=== PATIENT | female | born 1995 | race American Indian/Alaskan Native ===

== ENCOUNTER 2017-10-07 12:03 | Emergency (ER) | payer MEDICAID ==
[2017-10-07] MEDS ORDERED: Sodium Chloride 0.9% 1,000 ML IV ONE (14:38)
[2017-10-07] MEDS ORDERED: Sodium Chloride 0.9% 10 ML Syringe FLUSH PRN (14:38)
[2017-10-07 14:43] LABS: CHLORIDE,CL 105 mmol/L (101-111); SODIUM,NA 137 mmol/L (135-145)
[2017-10-07] MEDS ORDERED: Iopamidol 612 MG/ML 75 ML Bottle IVPUSH ONE (15:39)
--- NOTE | 2017-10-07 15:43 | EDM.PDOC ---
ED HPI GENERAL MEDICAL PROBLEM - General Chief Complaint: Back Pain or Injury Stated Complaint: BACK/ABDOMINAL PAIN Time Seen by Provider: 10/07/17 13:45 Source of Information: Reports: Patient, RN, RN Notes Reviewed History Limitations: Reports: No Limitations - History of Present Illness INITIAL COMMENTS - FREE TEXT/NARRATIVE: Patient presents to ER with complaint of diffuse abdominal pain/bilateral flank pain. She has complaint of urgency, burning and frequency. Denies the chance of . States she went to [facility] 2 weeks ago. She was given antibiotics for a UTI, which she never took. She took one of those pills yesterday. She admits to fever, chills, nausea, vomiting and diarrhea. Duration: Constant Location: Reports: Abdomen, Other (flank) Quality: Reports: Ache Severity: Moderate Improves with: Reports: None Worsens with: Reports: None Associated Symptoms: Reports: No Other Symptoms Treatments NATURAL RESOURCES SPECIALIST: Reports: Other Medication(s) Other Treatments NATURAL RESOURCES SPECIALIST: Ibuprophen Lower Back Pain Score (Numeric/FACES): 7 - Related Data Allergies Allergy/AdvReac Type Severity Reaction Status Date / Time No Known Allergies Allergy Verified 10/07/17 13:31 Home Meds: Home Meds Amoxicillin 10/07/17 [History] Ibuprofen 10/07/17 [History] Past Medical History - Past Health History Medical/Surgical History: Denies Medical/Surgical History Respiratory History: Reports: Asthma Gastrointestinal History: Reports: None Genitourinary History: Reports: Pyelonephritis 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) Other OB/BYN History: Ovarian cyst - Infectious Disease History Infectious Disease History: Reports: None - Past Surgical History GI Surgical History: Reports: Cholecystectomy Social & Family History - Family History Family Medical History: Noncontributory Endocrine/Metabolic: Reports: Diabetes, type II - Tobacco Use Smoking Status *Q: Current Every Day Smoker Years of Tobacco use: 6 Packs/Tins Daily: 0.2 Second Hand Smoke Exposure: Yes - Caffeine Use Caffeine Use: Reports: None - Alcohol Use Days Per Week of Alcohol Use: 0 - Recreational Drug Use Recreational Drug Use: No - Sexual History Sexual History: Reports: Sexually Active - Living Situation & Occupation Living situation: Reports: Single, with Family Occupation: Student ED ROS GENERAL - Review of Systems Review Of Systems: ROS reveals no pertinent complaints other than HPI. ED EXAM, GI/ABD - Physical Exam Exam: See Below Exam Limited By: No Limitations General Appearance: Alert, WD/WN, No Apparent Distress Eyes: Bilateral: Normal Appearance Ears: Normal External Exam, Normal Canal, Hearing Grossly Normal, Normal TMs Nose: Normal Inspection, Normal Mucosa, No Blood Head: Atraumatic, Normocephalic Neck: Normal Inspection, Supple, Non-Tender, Full Range of Motion Respiratory/Chest: Wheezing (inspiratory wheeze on right.) Cardiovascular: Normal Peripheral Pulses, Regular Rate, Rhythm, No Edema, No Gallop, No JVD, No Murmur, No Rub GI/Abdominal Exam: Other (tender) (Female) Exam: Deferred Rectal (Female) Exam: Deferred Back Exam: Normal Inspection, Full Range of Motion, NT Extremities: Normal Inspection, Normal Range of Motion, Non-Tender, Normal Capillary Refill, No Pedal Edema Neurological: Alert, Oriented, CN II-XII Intact, Normal Cognition, Normal Gait, Normal Reflexes, No Motor/Sensory Deficits Psychiatric: Normal Affect, Normal Mood Skin Exam: Warm, Dry, Intact, Normal Color, No Rash Lymphatic: No Adenopathy Course - Vital Signs Last Recorded V/S: Last Vital Signs Temp 98.3 F 10/07/17 17:11 Pulse 71 10/07/17 17:11 Resp 16 10/07/17 17:11 BP 114/65 10/07/17 17:11 Pulse Ox 98 10/07/17 17:11 - Orders/Labs/Meds Orders: Active Orders 24 hr Category Date Time Status Peripheral IV Care [RC] . DIRECTED Care 10/07/17 14:38 Active CHLAMYDIA AND GONORRHEA BY [facility] 10/07/17 13:22 Received Sodium Chloride 0.9% [Saline Flush] Med 10/07/17 14:38 Active 10 ml FLUSH ASDIRECTED PRN Peripheral IV Insertion Adult [OM.PC] Stat Oth 10/07/17 14:38 Ordered Medication Orders Sodium Chloride (Saline Flush) 10 ml FLUSH ASDIRECTED PRN PRN Reason: Keep Vein Open Last Admin: 10/07/17 15:25 Dose: 10 ml Labs: Laboratory Tests 10/07/17 10/07/17 10/07/17 Range/Units 13:22 13:22 14:08 WBC 18.9 H (5.0-10.0) 10^3/uL RBC 4.82 (4.2-5.4) 10^6/uL Hgb 13.9 (12.0-16.0) g/dL Hct 41.7 (37.0-47.0) % MCV 86.5 D (80-100) fL MCH 28.8 (27.0-34.0) pg MCHC 33.3 (33.0-35.0) g/dL Plt Count 291 (150-450) 10^3/uL Neut % (Auto) 82.3 H (42.2-75.2) % Lymph % (Auto) 10.7 L (20.5-50.1) % [place] % (Auto) 5.9 (2-8) % Eos % (Auto) 0.8 L (1.0-3.0) % Baso % (Auto) 0.3 (0.0-1.0) % Sodium (135-145) mmol/L Potassium (3.6-5.0) mmol/L Chloride (101-111) mmol/L Carbon Dioxide (21.0-31.0) mmol/L Anion Gap BUN (7-18) mg/dL Creatinine (0.6-1.3) mg/dL Est Cr Clr Drug Dosing mL/min Estimated GFR (MDRD) BUN/Creatinine Ratio Glucose (74-105) mg/dL Calcium (8.4-10.2) mg/dl Total Bilirubin (0.2-1.0) mg/dL AST (10-42) IU/L ALT (10-60) IU/L Alkaline Phosphatase (42-121) IU/L Total Protein (6.7-8.2) g/dl Albumin (3.2-5.5) g/dl Globulin Albumin/Globulin Ratio Urine Color Yellow (YELLOW) Urine Appearance Clear (CLEAR) Urine pH 6.0 (5.0-9.0) Ur Specific [place] 1.010 (1.005-1.030) Urine Protein Negative (NEGATIVE) Urine Glucose (UA) Negative (NEGATIVE) Urine Ketones Negative (NEGATIVE) Urine Occult Blood Moderate H (NEGATIVE) Urine Nitrite Negative (NEGATIVE) Urine Bilirubin Negative (NEGATIVE) Urine Urobilinogen 0.2 (0.2-1.0) mg/dL Ur Leukocyte Esterase Trace H (NEGATIVE) Urine RBC 0-5 /HPF Urine WBC 0-5 (0-5/HPF) /HPF Ur Epithelial Cells Many H /HPF Urine Bacteria Few (0-FEW/HPF) /HPF Urine HCG, Qual Negative 10/07/17 Range/Units 14:08 WBC (5.0-10.0) 10^3/uL RBC (4.2-5.4) 10^6/uL Hgb (12.0-16.0) g/dL Hct (37.0-47.0) % MCV (80-100) fL MCH (27.0-34.0) pg MCHC (33.0-35.0) g/dL Plt Count (150-450) 10^3/uL Neut % (Auto) (42.2-75.2) % Lymph % (Auto) (20.5-50.1) % [place] % (Auto) (2-8) % Eos % (Auto) (1.0-3.0) % Baso % (Auto) (0.0-1.0) % Sodium 137 (135-145) mmol/L Potassium 3.2 L (3.6-5.0) mmol/L Chloride 105 (101-111) mmol/L Carbon Dioxide 22.0 (21.0-31.0) mmol/L Anion Gap 13.2 BUN 10 (7-18) mg/dL Creatinine 0.5 L (0.6-1.3) mg/dL Est Cr Clr Drug Dosing 154.98 mL/min Estimated GFR (MDRD) > 60 BUN/Creatinine Ratio 20.00 Glucose 90 (74-105) mg/dL Calcium 9.1 (8.4-10.2) mg/dl Total Bilirubin 1.5 H (0.2-1.0) mg/dL AST 32 (10-42) IU/L ALT 69 H (10-60) IU/L Alkaline Phosphatase 71 (42-121) IU/L Total Protein 7.9 (6.7-8.2) g/dl Albumin 4.5 (3.2-5.5) g/dl Globulin 3.4 Albumin/Globulin Ratio 1.32 Urine Color (YELLOW) Urine Appearance (CLEAR) Urine pH (5.0-9.0) Ur Specific [place] (1.005-1.030) Urine Protein (NEGATIVE) Urine Glucose (UA) (NEGATIVE) Urine Ketones (NEGATIVE) Urine Occult Blood (NEGATIVE) Urine Nitrite (NEGATIVE) Urine Bilirubin (NEGATIVE) Urine Urobilinogen (0.2-1.0) mg/dL Ur Leukocyte Esterase (NEGATIVE) Urine RBC /HPF Urine WBC (0-5/HPF) /HPF Ur Epithelial Cells /HPF Urine Bacteria (0-FEW/HPF) /HPF Urine HCG, Qual Meds: Medications Generic Name Dose Route Start Last Admin Trade Name Freq PRN Reason Stop Dose Admin Sodium Chloride 10 ml 10/07/17 14:38 10/07/17 15:25 Saline Flush FLUSH 10 ml ASDIRECTED PRN Administration Keep Vein Open Discontinued Medications Generic Name Dose Route Start Last Admin Trade Name Freq PRN Reason Stop Dose Admin Azithromycin 1,000 mg 10/07/17 17:30 Zithromax PO 10/07/17 17:31 ONETIME ONE Ceftriaxone Sodium 250 mg 10/07/17 17:27 Rocephin IM 10/07/17 17:28 ONETIME ONE Sodium Chloride 1,000 mls @ 999 mls/hr 10/07/17 14:38 10/07/17 15:24 Normal Saline IV 10/07/17 15:38 999 mls/hr .BOLUS ONE Administration Iopamidol 75 ml 10/07/17 15:39 10/07/17 15:30 Isovue-300 (61%) IVPUSH 10/07/17 15:40 75 ml ONETIME ONE Administration Ondansetron HCl 4 mg 10/07/17 16:21 10/07/17 16:38 Zofran IV 10/07/17 16:22 4 mg ONETIME ONE Administration - Radiology Interpretation Free Text/Narrative:: CT abdomen/pelvis: Cholecystectomy. Trace fluid in the pelvis. Otherwise negative emergency CT scan pelvis and abdomen. See Rad report. - Re-Assessments/Exams Free Text/Narrative Re-Assessment/Exam: 10/07/17 17:31 Pt was instructed to abstain from sexual intercourse until she has completed her antibiotics. Pt was advised of the antibiotics that she has received. Advised to follow up in 3 days if no improvement of symptoms. Departure - Departure Time of Disposition: 17:32 Disposition: Home, Self-Care 01 Condition: Fair Clinical Impression: PID (acute pelvic inflammatory disease) - Discharge Information Instructions: Pelvic Pain, Female, [id number], Chlamydia, Female, Easy-to- Read, Pelvic Inflammatory Disease, [id number], Gonorrhea Forms: ED Department Discharge Additional Instructions: RX: Doxycycline Follow up in 3 days if no improvement Follow up with your primary care facility as necessary No sexual intercourse until antibiotics are completed and symptoms are gone. - My Orders Last 24 Hours: My Active Orders 10/07/17 13:22 CHLAMYDIA AND GONORRHEA BY [facility] Urgent 10/07/17 14:38 Peripheral IV Care [RC] . DIRECTED Sodium Chloride 0.9% [Saline Flush] 10 ml FLUSH ASDIRECTED PRN Peripheral IV Insertion Adult [OM.PC] Stat - Assessment/Plan Last 24 Hours: My Active Orders 10/07/17 13:22 CHLAMYDIA AND GONORRHEA BY [facility] Urgent 10/07/17 14:38 Peripheral IV Care [RC] . DIRECTED Sodium Chloride 0.9% [Saline Flush] 10 ml FLUSH ASDIRECTED PRN Peripheral IV Insertion Adult [OM.PC] Stat
--- NOTE | 2017-10-07 16:17 | CT ---
Clinical history: 22-year-old female smoker with left lower quadrant pain and abnormally elevated i te blood cell count (19,900). TECHNIQUE: Volume acquisition of data from the abdomen and pelvis obtained without oral contrast but during intravenous ministration 75 cc nonionic Isovue contrast while patient was lying supine on the Siemens multi slice scanner [place], [place]. All data archived in the PACS system for storage, reformatting axial/sagittal/coronal planes and study. Interpretation: 1. Normal midline uterus and ovaries bilaterally (*trace of fluid in the cul-de-sac just possible rec ent cyst rupture). 2. No sign of diverticulosis. Normal appendix RLQ. No pelvic or abdominal mass lesion, mesenteric or retroperitoneal lymphadenopathy, inflammatory "dirty" peritoneal fat, signs of mechanical bowel obstr uction, ascites or free intraperitoneal air. 3. Surgical clips gallbladder fossa right upper quadrant. Large fatty liver. 4. Stomach, spleen, pancreas, adrenal glands unremarkable. No ventral wall hernias. 5. Normal caliber aortoiliac vessels. Lumbar spine unremarkable. Lung bases clear. 6. Exogenous obesity. CONCLUSION: Cholecystectomy. Trace fluid in the pelvis. Otherwise negative emergency CT scan pelvis a nd abdomen.
[2017-10-07] MEDS ORDERED: Ondansetron 4 MG/2 ML SDV IV ONE (16:21)
[2017-10-07 17:11] VITALS: BP 114/65
[2017-10-07] MEDS ORDERED: cefTRIAXone 250 MG Vial IM ONE (17:27)
[2017-10-07] MEDS ORDERED: Azithromycin 250 MG Tab PO ONE (17:30)
[2017-10-07] MEDS ORDERED: Lidocaine 1% 30 ML SDV ONE (17:42)
== END 2017-10-07 17:54 | disposition home or self-care (01) ==
LOC: DL.ED 12:03
DX: N73.0 Acute parametritis and pelvic cellulitis (principal); F17.210 Nicotine dependence, cigarettes, uncomplicated
CPT/HCPCS: 36415; 74177; 80053; 81001; 81025; 85025; 87210; 87491; 87591; 96361; 96372; 96374; 99284; A9270; J0696; J2405; J7030; J7050; Q9967

== ENCOUNTER 2017-10-15 21:48 | Emergency (ER) | payer MEDICAID ==
[2017-10-15 21:55] VITALS: BP 124/68
--- NOTE | 2017-10-15 22:11 | EDM.PDOC ---
ED HPI GENERAL MEDICAL PROBLEM - General Chief Complaint: Lower Extremity Injury/Pain Stated Complaint: BOTTOM OF FOOT HURTS, [id number] Time Seen by Provider: 10/15/17 22:00 Source of Information: Reports: Patient History Limitations: Reports: No Limitations - History of Present Illness INITIAL COMMENTS - FREE TEXT/NARRATIVE: c/o painful right foot bottom, has appt Wednesday but hurts to walk and work. 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) Other OB/BYN History: Ovarian cyst - Infectious Disease History Infectious Disease History: Reports: None - Past Surgical History GI Surgical History: Reports: Cholecystectomy Social & Family History - Family History Family Medical History: Noncontributory Endocrine/Metabolic: Reports: Diabetes, type II - Tobacco Use Smoking Status *Q: Current Every Day Smoker Years of Tobacco use: 6 Packs/Tins Daily: 0.2 Second Hand Smoke Exposure: Yes - Caffeine Use Caffeine Use: Reports: None - Alcohol Use Days Per Week of Alcohol Use: 0 - Recreational Drug Use Recreational Drug Use: No - Sexual History Sexual History: Reports: Sexually Active - Living Situation & Occupation Living situation: Reports: Single, with Family Occupation: Student Review of Systems - Review of Systems Review Of Systems: ROS reveals no pertinent complaints other than HPI. ED EXAM, GENERAL - Physical Exam Exam: See Below Exam Limited By: No Limitations General Appearance: Alert, WD/WN, Mild Distress, Other (upset) Ears: Hearing Grossly Normal Throat/Mouth: Normal Voice, No Airway Compromise Head: Atraumatic Neck: Non-Tender, Full Range of Motion Respiratory/Chest: No Respiratory Distress Cardiovascular: Regular Rate, Rhythm GI/Abdominal: Soft, Non-Tender Extremities: Other (right lateral plantar callus without s/s cellulitis, gait limited to pain) Neurological: Alert, Oriented, Normal Cognition, Normal Gait, No Motor/Sensory Deficits Psychiatric: Tearful Skin Exam: Warm, Dry, Normal Color Lymphatic: No Adenopathy Course - Vital Signs Last Recorded V/S: Last Vital Signs Temp 37.1 C 10/15/17 21:54 Pulse 83 10/15/17 21:54 Resp 16 10/15/17 21:54 BP 124/68 10/15/17 21:54 Pulse Ox 98 10/15/17 21:54 Departure - Departure Time of Disposition: 22:08 Disposition: Home, Self-Care 01 Condition: Good Clinical Impression: Plantar wart of right foot - Discharge Information Additional Instructions: 1) elevate foot 2) try CORN PAD FROM [facility] 3) follow up with doctor per appointment Wednesday 4) take tylenol or motrin for pain
== END 2017-10-15 22:15 | disposition home or self-care (01) ==
LOC: DL.ED 21:48
DX: B07.0 Plantar wart (principal); F17.210 Nicotine dependence, cigarettes, uncomplicated
CPT/HCPCS: 99282

== ENCOUNTER 2018-01-25 09:18 | Emergency (ER) | payer MEDICAID, OTHER ==
--- NOTE | 2018-01-25 09:36 | EDM.PDOC ---
ED HPI GENERAL MEDICAL PROBLEM - General Chief Complaint: Respiratory Problem Stated Complaint: [id number] INHALED BLEACH AND BIG SANDY AWAY Time Seen by Provider: 01/25/18 09:30 Source of Information: Reports: Patient, Family, RN, RN Notes Reviewed History Limitations: Reports: No Limitations - History of Present Illness INITIAL COMMENTS - FREE TEXT/NARRATIVE: Pt presents to the ER with c/o inhaling fumes after a co-worker mixed [place] away with bleach for mop water. She states her throat has been burning and she has been wheezing and having difficulty breathing. She states she does have asthma. Denies N/V/D, chest pains. 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) Other OB/BYN History: Ovarian cyst - Infectious Disease History Infectious Disease History: Reports: None - Past Surgical History GI Surgical History: Reports: Cholecystectomy Social & Family History - Family History Family Medical History: Noncontributory Endocrine/Metabolic: Reports: Diabetes, type II - Tobacco Use Years of Tobacco use: 6 Packs/Tins Daily: 0.2 Second Hand Smoke Exposure: Yes - Caffeine Use Caffeine Use: Reports: None - Alcohol Use Days Per Week of Alcohol Use: 0 - Recreational Drug Use Recreational Drug Use: No - Sexual History Sexual History: Reports: Sexually Active - Living Situation & Occupation Living situation: Reports: Single, with Family Occupation: Student ED ROS GENERAL - Review of Systems Review Of Systems: ROS reveals no pertinent complaints other than HPI. ED EXAM, GENERAL - Physical Exam Exam: See Below Exam Limited By: No Limitations General Appearance: Alert, WD/WN, No Apparent Distress Eye Exam: Bilateral Eye: EOMI, Normal Inspection Ears: Normal External Exam, Hearing Grossly Normal Nose: Normal Inspection Throat/Mouth: Normal Inspection, Normal Lips, Normal Teeth, Normal Gums, Normal Oropharynx, Normal Voice, No Airway Compromise Head: Atraumatic, Normocephalic Neck: Normal Inspection, Supple, Non-Tender, Full Range of Motion Respiratory/Chest: No Accessory Muscle Use, Chest Non-Tender, Decreased Breath Sounds, Wheezing (Exp, throughout) Cardiovascular: Normal Peripheral Pulses, Regular Rate, Rhythm, No Edema, No Gallop, No JVD, No Murmur, No Rub Peripheral Pulses: 2+: Radial (L), Radial (R) GI/Abdominal: Normal Bowel Sounds, Soft, Non-Tender, No Organomegaly, No Distention (Female) Exam: Deferred Rectal (Female) Exam: Deferred Back Exam: Normal Inspection, Full Range of Motion, NT Extremities: Normal Inspection, Normal Range of Motion, Non-Tender, Normal Capillary Refill, No Pedal Edema Neurological: Alert, Oriented, CN II-XII Intact, Normal Cognition, Normal Gait, Normal Reflexes, No Motor/Sensory Deficits Psychiatric: Normal Affect, Normal Mood Skin Exam: Warm, Dry, Intact, Normal Color, No Rash Lymphatic: No Adenopathy Course - Vital Signs Last Recorded V/S: Last Vital Signs Temp 99.2 F 01/25/18 09:20 Pulse 87 01/25/18 09:20 Resp 16 01/25/18 09:20 BP 112/64 01/25/18 09:20 Pulse Ox 96 01/25/18 09:43 - Orders/Labs/Meds Orders: Active Orders 24 hr Category Date Time Status RT Aerosol Therapy [RC] ASDIRECTED Care 01/25/18 09:43 Active Meds: Medications Discontinued Medications Generic Name Dose Route Start Last Admin Trade Name Guillermo PRN Reason Stop Dose Admin Albuterol/Ipratropium Confirm 01/25/18 09:39 01/25/18 09:41 Duoneb 3.0-0.5 Mg/3 Ml Administered 01/25/18 09:40 3 ml Dose Administration 3 ml .ROUTE .STK-MED ONE Departure - Departure Time of Disposition: 10:10 Disposition: Home, Self-Care 01 Condition: Fair Clinical Impression: Inhalation of cleaning agent Qualifiers: Encounter type: initial encounter Injury intent: accidental or unintentional Qualified Code(s): T59.891A - Toxic effect of other specified gases, fumes and vapors, accidental (unintentional), initial encounter - Discharge Information Instructions: Asthma, Adult, Shortness of Breath, Adult, [id number], Chemical Inhalation Injury, Adult Referrals: PCP,None [Primary Care Provider] - Forms: ED Department Discharge Additional Instructions: Follow up with your primary care facility - My Orders Last 24 Hours: My Active Orders 01/25/18 09:43 RT Aerosol Therapy [RC] ASDIRECTED - Assessment/Plan Last 24 Hours: My Active Orders 01/25/18 09:43 RT Aerosol Therapy [RC] ASDIRECTED
[2018-01-25] MEDS ORDERED: Albuterol/Ipratropium 3.0-0.5 MG/3 ML Neb Soln ONE (09:39)
[2018-01-25 10:11] VITALS: BP 112/64
== END 2018-01-25 10:45 | disposition home or self-care (01) ==
LOC: DL.ED 09:18
DX: T59.891A Toxic effect of other specified gases, fumes and vapors, accidental (unintentional), initial encounter (principal)
CPT/HCPCS: 99283; 99284

== ENCOUNTER 2018-11-23 09:31 | Emergency (ER) | payer MEDICAID, OTHER ==
[2018-11-23 09:46] VITALS: BP 120/63
--- NOTE | 2018-11-23 10:56 | EDM.PDOC ---
ED HPI GENERAL MEDICAL PROBLEM - General Chief Complaint: Skin Complaint Stated Complaint: SORE ON RT FOOT Time Seen by Provider: 11/23/18 09:50 Source of Information: Reports: Patient History Limitations: Reports: No Limitations - History of Present Illness INITIAL COMMENTS - FREE TEXT/NARRATIVE: Patient comes to the emergency department today with complaints of a sore right base of the fifth right toe. Approximately 3 months ago she had a callus that was removed on her foot by shaving. Over the past week it has become quite painful sore erythematous and swollen. It also has developed an area of a hole in the middle of the callus and the callus has returned. No fever no chills. No recent falls trauma or injury to the area. Right Feet Pain Score (Numeric/FACES): 6 - Related Data Allergies Allergy/AdvReac Type Severity Reaction Status Date / Time No Known Allergies Allergy Verified 11/23/18 09:51 Home Meds: Home Meds . 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) Other ENERGY CONSERVATION ENGINEER History: Ovarian cyst - Infectious Disease History Infectious Disease History: Reports: None - Past Surgical History GI Surgical History: Reports: Cholecystectomy Social & Family History - Family History Family Medical History: Noncontributory Endocrine/Metabolic: Reports: Diabetes, type II - Tobacco Use Smoking Status *Q: Never Smoker - Caffeine Use Caffeine Use: Reports: None - Recreational Drug Use Recreational Drug Use: No - Sexual History Sexual History: Reports: Sexually Active - Living Situation & Occupation Living situation: Reports: Single, with Family Occupation: Student ED ROS GENERAL - Review of Systems Review Of Systems: ROS reveals no pertinent complaints other than HPI. ED EXAM, SKIN/RASH Exam: See Below Exam Limited By: No Limitations General Appearance: Alert, WD/WN, No Apparent Distress Extremities: No: Normal Inspection (At the plantar surface of the right fifth toe and the distal aspect of the right fifth metatarsal there is a callus with a central area of loss of callus. There is generalized erythema swelling and severe tenderness even with the slight palpation. There is no bony deformity. Her tetanus shot is up-to-date. Rest of the foot is unremarkable. There is no streaking up the leg. There is no purulent discharge from the central dry hole in the center of the callus.) Skin: Warm, Dry, Intact, Normal Color, No Rash Course - Vital Signs Last Recorded V/S: Last Vital Signs Temp 36.8 C 11/23/18 09:44 Pulse 88 11/23/18 09:44 Resp 14 11/23/18 09:44 BP 120/63 11/23/18 09:44 Pulse Ox 98 11/23/18 09:44 - Radiology Interpretation Free Text/Narrative:: X-ray of the foot shows no radiopaque foreign body no significant abnormality normal bony structures. - Re-Assessments/Exams Free Text/Narrative Re-Assessment/Exam: 11/23/18 14:49 I explained to the patient this could be mildly infected callus with the area of erythema induration and swelling in the increased pain. We'll put her on Bactrim to cover for infection. She also needs to see podiatry and we did some symptomatic management until that time. The patient is comfortable with this plan and her questions are answered. Departure - Departure Time of Disposition: 10:47 Disposition: Home, Self-Care 01 Clinical Impression: Plantar callus Cellulitis Qualifiers: Site of cellulitis: extremity Site of cellulitis of extremity: toe Laterality: right Qualified Code(s): L03.031 - Cellulitis of right toe - Discharge Information Instructions: Cellulitis, Adult, [id number], Corns and Calluses Referrals: PCP,None [Primary Care Provider] - Forms: ED Department Discharge Additional Instructions: Tylenol and or Ibuprofen as needed for pain. Go to [facility] and purchase corn pads to place to the areas to help with soreness. Bactrim 1 tablet twice daily for 7 days. RX given to the patient. See podiatry when able. Make sure you are wearing comfortable well fitting not tight shoes. Return to ed if new or worsening symptoms. Soak your foot in warm water and Epsom salt 4 times a day to soften the area.
== END 2018-11-23 11:05 | disposition home or self-care (01) ==
LOC: DL.ED 09:31
DX: L03.031 Cellulitis of right toe (principal); L84 Corns and callosities
CPT/HCPCS: 73620-RT; 99283-25

== ENCOUNTER 2019-05-13 18:22 | Emergency (ER) | payer MEDICAID ==
[2019-05-13] MEDS ORDERED: Lidocaine 2% Viscous Solution 15 ML Cup PO ONE (18:23)
[2019-05-13 20:36] VITALS: BP 122/84
[2019-05-13] MEDS ORDERED: Clindamycin HCl 150 MG Cap PO ONE (22:22)
[2019-05-13] MEDS ORDERED: Ketorolac 30 MG/ML SDV IM ONE (22:22)
--- NOTE | 2019-05-13 22:29 | EDM.PDOC ---
ED HPI GENERAL MEDICAL PROBLEM - General Chief Complaint: ENT Problem Stated Complaint: TOOTH PAIN Time Seen by Provider: 05/13/19 22:27 Source of Information: Reports: Patient History Limitations: Reports: No Limitations - History of Present Illness INITIAL COMMENTS - FREE TEXT/NARRATIVE: c/o exac tooth problem. Treatments CUSTOMER SERVICES SUPERVISOR: Reports: Acetaminophen, NSAIDS, Other Medication(s), Other (see below) Other Treatments CUSTOMER SERVICES SUPERVISOR: see triage assessment note Right Lower Tooth/Teeth Pain Score (Numeric/FACES): 10 - Related Data Allergies Allergy/AdvReac Type Severity Reaction Status Date / Time No Known Allergies Allergy Verified 05/13/19 20:36 Home Meds: Home Meds . [No Known Home Meds] 11/23/18 [History] Past Medical History - Past Health History Medical/Surgical History: Denies Medical/Surgical History Respiratory History: Reports: Asthma Gastrointestinal History: Reports: None Genitourinary History: Reports: Pyelonephritis EMPLOYMENT INTERVIEWER History: Reports: Other (See Below) Other EMPLOYMENT INTERVIEWER History: Ovarian cyst - Infectious Disease History Infectious Disease History: Reports: None - Past Surgical History GI Surgical History: Reports: Cholecystectomy Social & Family History - Family History Family Medical History: Noncontributory Endocrine/Metabolic: Reports: Diabetes, type II - Tobacco Use Smoking Status *Q: Unknown Ever Smoked - Caffeine Use Caffeine Use: Reports: Coffee - Recreational Drug Use Recreational Drug Use: No - Sexual History Sexual History: Reports: Sexually Active - Living Situation & Occupation Living situation: Reports: Single, with Family Occupation: Student ED ROS ENT - Review of Systems Review Of Systems: ROS reveals no pertinent complaints other than HPI. ED EXAM, ENT - Physical Exam Exam: See Below Exam Limited By: No Limitations General Appearance: Alert, WD/WN, Mild Distress, Other (crying) Ears: Hearing Grossly Normal Mouth/Throat: Dental Abcess, Dental Pain, Dental Tenderness Head: Atraumatic Neck: Non-Tender, Full Range of Motion Respiratory/Chest: No Respiratory Distress Cardiovascular: Regular Rate, Rhythm GI/Abdominal: Soft, Non-Tender Neurological: Alert, Oriented, Normal Cognition, Normal Gait, No Motor/Sensory Deficits Psychiatric: Tearful Skin: Warm, Dry, Normal Color Lymphatic: No Adenopathy Course - Vital Signs Last Recorded V/S: Last Vital Signs Temp 36.5 C 05/13/19 19:57 Pulse 93 05/13/19 19:57 Resp 16 08/24/19 19:57 BP 122/84 05/13/19 19:57 Pulse Ox 98 05/13/19 19:57 - Orders/Labs/Meds Meds: Medications Discontinued Medications Generic Name Dose Route Start Last Admin Trade Name Guillermo PRN Reason Stop Dose Admin Clindamycin HCl 300 mg 05/13/19 22:22 05/13/19 22:30 Cleocin PO 05/13/19 22:23 300 mg ONETIME ONE Administration Ketorolac Tromethamine 30 mg 05/13/19 22:22 05/13/19 22:31 Toradol IM 05/13/19 22:23 30 mg ONETIME ONE Administration Lidocaine HCl Confirm 05/13/19 22:41 05/13/19 22:45 Xylocaine 2% Viscous Administered 05/13/19 22:42 Not Given Dose 15 ml .ROUTE .STK-MED ONE Departure - Departure Time of Disposition: 22:50 Disposition: Home, Self-Care 01 Condition: Good Clinical Impression: Dental caries, Dental abscess - Discharge Information Instructions: Dental Abscess, [id number] Forms: ED Department Discharge Additional Instructions: 1) see DENTIST WEDNESDAY 2) avoid solid and chewy foods rx given; clindamycin 300mg qid x40 rx togo; lido viscous apply to hole in tooth with Q-tip as needed for pain
[2019-05-13] MEDS ORDERED: Lidocaine 2% Viscous Solution 15 ML Cup ONE (22:41)
== END 2019-05-13 22:59 | disposition home or self-care (01) ==
LOC: DL.ED 18:22
DX: K04.7 Periapical abscess without sinus (principal); K02.9 Dental caries, unspecified; Z90.49 Acquired absence of other specified parts of digestive tract
CPT/HCPCS: 96372; 99282; A9270; J1885

== ENCOUNTER 2019-07-12 23:40 | Emergency (ER) | payer SELFPAY ==
[2019-07-12 23:49] VITALS: BP 120/77; PULSE 110
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
[2019-07-13 00:18] LABS: ANION GAP 13.5; CHLORIDE,CL 107 mmol/L (101-111); SODIUM,NA 140 mmol/L (135-145)
[2019-07-13] MEDS ORDERED: Acetaminophen 325 MG Tab PO ONE (00:18)
[2019-07-13] MEDS ORDERED: Sodium Chloride 0.9% 1,000 ML IV SCH (00:30)
== END 2019-07-13 01:47 | disposition home or self-care (01) ==
LOC: DL.ED 23:40
DX: F19.10 Other psychoactive substance abuse, uncomplicated (principal); J45.909 Unspecified asthma, uncomplicated
CPT/HCPCS: 36415; 80048; 80305; 85027; 96360; 99284; A9270; J7030; 99283

== ENCOUNTER 2020-04-29 00:14 | Emergency (ER) | payer SELFPAY ==
[2020-04-29 00:23] VITALS: BP 115/66; PULSE 94
[2020-04-29] MEDS ORDERED: Ondansetron 4 MG/2 ML SDV IVPUSH ONE (00:48)
[2020-04-29] MEDS ORDERED: diphenhydrAMINE 50 MG/ML SDV IVPUSH ONE (00:48)
[2020-04-29 01:00] LABS: ANION GAP 12.2 mEq/L (7-13); CHLORIDE,CL 103 mmol/L (98-107); SODIUM,NA 140 mmol/L (136-145)
[2020-04-29] MEDS ORDERED: Sodium Chloride 0.9% 1,000 ML IV ONE (01:48)
--- NOTE | 2020-04-29 02:24 | EDM.PDOC ---
ED HPI GENERAL MEDICAL PROBLEM - General Chief Complaint: Skin Complaint Stated Complaint: THROWING UP/ARM PAIN Time Seen by Provider: 04/29/20 00:20 Source of Information: Reports: Patient History Limitations: Reports: No Limitations - History of Present Illness INITIAL COMMENTS - FREE TEXT/NARRATIVE: ED with c/o left arm pain from missing IV site when injecting drugs on Wednesday. Vomiting since Wednesday reports unable to keep anything down. no diarrhea. Denies Covid exposure, No cough. Unknown if fever, Some pain with urination. LMP current. Left Elbow Pain Score (Numeric/FACES): 10 - Related Data Allergies Allergy/AdvReac Type Severity Reaction Status Date / Time No Known Allergies Allergy Verified 04/29/20 00:24 Home Meds: Home Meds . [No Known Home Meds] 11/23/18 [History] Past Medical History - Past Health History Medical/Surgical History: Denies Medical/Surgical History Respiratory History: Reports: Asthma Gastrointestinal History: Reports: None Genitourinary History: Reports: Pyelonephritis WEIGHT INSPECTOR History: Reports: Other (See Below) Other WEIGHT INSPECTOR History: Ovarian cyst Psychiatric History: Reports: Addiction - Infectious Disease History Infectious Disease History: Reports: None - Past Surgical History GI Surgical History: Reports: Cholecystectomy Social & Family History - Family History Family Medical History: Noncontributory Endocrine/Metabolic: Reports: Diabetes, type II - Tobacco Use Smoking Status *Q: Current Every Day Smoker Years of Tobacco use: 2 Packs/Tins Daily: 1 - Caffeine Use Caffeine Use: Reports: Energy Drinks - Recreational Drug Use Recreational Drug Type: Reports: Methamphetamine - Sexual History Sexual History: Reports: Sexually Active - Living Situation & Occupation Living situation: Reports: Single, with Family Occupation: Student ED ROS GENERAL - Review of Systems Review Of Systems: Comprehensive ROS is negative, except as noted in HPI. ED EXAM, SKIN/RASH Exam: See Below Exam Limited By: No Limitations General Appearance: Alert, Anxious, Mild Distress Eye Exam: Bilateral Eye: EOMI Ears: Normal External Exam Nose: Normal Inspection Throat/Mouth: Normal Inspection Head: Atraumatic, Normocephalic Neck: Normal Inspection Respiratory/Chest: No Respiratory Distress, Lungs Clear, Normal Breath Sounds Cardiovascular: Normal Peripheral Pulses, Regular Rate, Rhythm GI/Abdominal: Normal Bowel Sounds, Soft, Non-Tender Back Exam: CVA Tenderness (L) Extremities: Redness (left outer anticubital area mild arythema, mild swelling , tender to palpation. ) Neurological: Alert, Oriented, Normal Cognition Psychiatric: Anxious Skin: Warm, Dry, Intact, Erythema (4x3 left outer elbow) Location, Skin: Upper Extremity, Left Course - Vital Signs Last Recorded V/S: Last Vital Signs Temp 97.2 F 04/29/20 00:19 Pulse 94 04/29/20 00:19 Resp 18 04/29/20 00:19 BP 115/66 04/29/20 00:19 Pulse Ox 100 04/29/20 00:19 - Orders/Labs/Meds Orders: Active Orders 24 hr Category Date Time Status CULTURE BLOOD [BC] Stat Lab 04/29/20 00:30 Results CULTURE BLOOD [BC] Stat Lab 04/29/20 00:45 Received CULTURE URINE [RM] Stat Lab 04/29/20 00:21 Received Blood Culture x2 Reflex Set [OM.PC] Stat Oth 04/29/20 00:21 Ordered Labs: Laboratory Tests 04/29/20 04/29/20 04/29/20 Range/Units 00:21 00:21 00:30 WBC 15.5 H (5.0-10.0) 10^3/uL RBC 4.72 (4.2-5.4) 10^6/uL Hgb 13.7 (12.0-16.0) g/dL Hct 41.9 (37.0-47.0) % MCV 88.8 (80-100) fL MCH 29.0 (27.0-34.0) pg MCHC 32.7 L (33.0-35.0) g/dL Plt Count 301 (150-450) 10^3/uL Neut % (Auto) 69.8 (42.2-75.2) % Lymph % (Auto) 21.5 (20.5-50.1) % Swift % (Auto) 7.6 (2-8) % Eos % (Auto) 1.0 (1.0-3.0) % Baso % (Auto) 0.1 (0.0-1.0) % Sodium (136-145) mmol/L Potassium (3.5-5.1) mmol/L Chloride (98-107) mmol/L Carbon Dioxide (21-32) mmol/L Anion Gap (7-13) mEq/L BUN (7-18) mg/dL Creatinine (0.55-1.02) mg/dL Est Cr Clr Drug Dosing mL/min Estimated GFR (MDRD) BUN/Creatinine Ratio (No establ ref range) Glucose (74-99) mg/dL Lactic Acid (0.4-2.0) mmol/L Calcium (8.5-10.1) mg/dL Total Bilirubin (0.2-1.0) mg/dL AST (15-37) U/L ALT (14-59) U/L Alkaline Phosphatase (46-116) U/L Total Protein (6.4-8.2) g/dL Albumin (3.4-5.0) g/dL Globulin Albumin/Globulin Ratio HCG, Qual Urine Color Dark yellow (YELLOW) Urine Appearance Cloudy (CLEAR) Urine pH 6.5 (5.0-9.0) Ur Specific Huxley 1.025 (1.005-1.030) Urine Protein Negative (NEGATIVE) Urine Glucose (UA) Negative (NEGATIVE) Urine Ketones Negative (NEGATIVE) Urine Occult Blood Large H (NEGATIVE) Urine Nitrite Positive H (NEGATIVE) Urine Bilirubin Negative (NEGATIVE) Urine Urobilinogen 1.0 (0.2-1.0) mg/dL Ur Leukocyte Esterase Small H (NEGATIVE) Urine RBC 20-30 H /HPF Urine WBC 50-75 H (0-5/HPF) /HPF Ur Epithelial Cells Many H (NOT SEEN) /HPF Urine Bacteria Many H (0-FEW/HPF) /HPF Urine Mucus Moderate H (NOT SEEN) /LPF Urine Opiates Screen Negative (NEGATIVE) Ur Oxycodone Screen Negative (NEGATIVE) Urine Methadone Screen Negative (NEGATIVE) Ur Barbiturates Screen Negative (NEGATIVE) U Tricyclic Antidepress Negative (NEGATIVE) Ur Phencyclidine Scrn Negative (NEGATIVE) Ur Amphetamine Screen Positive H (NEGATIVE) U Methamphetamines Scrn Positive H (NEGATIVE) Urine MDMA Screen Negative (NEGATIVE) U Benzodiazepines Scrn Negative (NEGATIVE) Urine Cocaine Screen Negative (NEGATIVE) U Marijuana (THC) Screen Positive H (NEGATIVE) 04/29/20 04/29/20 Range/Units 00:30 00:30 WBC (5.0-10.0) 10^3/uL RBC (4.2-5.4) 10^6/uL Hgb (12.0-16.0) g/dL Hct (37.0-47.0) % MCV (80-100) fL MCH (27.0-34.0) pg MCHC (33.0-35.0) g/dL Plt Count (150-450) 10^3/uL Neut % (Auto) (42.2-75.2) % Lymph % (Auto) (20.5-50.1) % Swift % (Auto) (2-8) % Eos % (Auto) (1.0-3.0) % Baso % (Auto) (0.0-1.0) % Sodium 140 (136-145) mmol/L Potassium 3.2 L (3.5-5.1) mmol/L Chloride 103 (98-107) mmol/L Carbon Dioxide 28 (21-32) mmol/L Anion Gap 12.2 (7-13) mEq/L BUN 7 (7-18) mg/dL Creatinine 0.71 (0.55-1.02) mg/dL Est Cr Clr Drug Dosing 106.41 mL/min Estimated GFR (MDRD) > 60 BUN/Creatinine Ratio 9.9 (No establ ref range) Glucose 119 H (74-99) mg/dL Lactic Acid 1.5 (0.4-2.0) mmol/L Calcium 8.5 (8.5-10.1) mg/dL Total Bilirubin 0.5 (0.2-1.0) mg/dL AST 10 L (15-37) U/L ALT 27 (14-59) U/L Alkaline Phosphatase 91 (46-116) U/L Total Protein 8.0 (6.4-8.2) g/dL Albumin 3.4 (3.4-5.0) g/dL Globulin 4.6 Albumin/Globulin Ratio 0.7 HCG, Qual Negative Urine Color (YELLOW) Urine Appearance (CLEAR) Urine pH (5.0-9.0) Ur Specific Huxley (1.005-1.030) Urine Protein (NEGATIVE) Urine Glucose (UA) (NEGATIVE) Urine Ketones (NEGATIVE) Urine Occult Blood (NEGATIVE) Urine Nitrite (NEGATIVE) Urine Bilirubin (NEGATIVE) Urine Urobilinogen (0.2-1.0) mg/dL Ur Leukocyte Esterase (NEGATIVE) Urine RBC /HPF Urine WBC (0-5/HPF) /HPF Ur Epithelial Cells (NOT SEEN) /HPF Urine Bacteria (0-FEW/HPF) /HPF Urine Mucus (NOT SEEN) /LPF Urine Opiates Screen (NEGATIVE) Ur Oxycodone Screen (NEGATIVE) Urine Methadone Screen (NEGATIVE) Ur Barbiturates Screen (NEGATIVE) U Tricyclic Antidepress (NEGATIVE) Ur Phencyclidine Scrn (NEGATIVE) Ur Amphetamine Screen (NEGATIVE) U Methamphetamines Scrn (NEGATIVE) Urine MDMA Screen (NEGATIVE) U Benzodiazepines Scrn (NEGATIVE) Urine Cocaine Screen (NEGATIVE) U Marijuana (THC) Screen (NEGATIVE) Meds: Medications Discontinued Medications Generic Name Dose Route Start Last Admin Trade Name Freq PRN Reason Stop Dose Admin Diphenhydramine HCl 25 mg 04/29/20 00:48 04/29/20 01:06 Benadryl IVPUSH 04/29/20 00:49 25 mg ONETIME ONE Administration Vancomycin HCl 900 mg/ Sodium 250 mls @ 166.667 mls/hr 04/29/20 00:50 04/29/20 01:08 Chloride IV 04/29/20 02:19 166.667 mls/hr ONETIME ONE Administration Sodium Chloride 1,000 mls @ 999 mls/hr 04/29/20 01:48 04/29/20 02:27 Normal Saline IV 04/29/20 02:48 999 mls/hr .BOLUS ONE Administration Ondansetron HCl 4 mg 04/29/20 00:48 04/29/20 01:07 Zofran IVPUSH 04/29/20 00:49 4 mg ONETIME ONE Administration Departure - Departure Time of Disposition: 02:53 Disposition: Home, Self-Care 01 Condition: Good Clinical Impression: Methamphetamine abuse, IVDU (intravenous drug user), Cellulitis of arm, left UTI (urinary tract infection) Qualifiers: Urinary tract infection type: acute cystitis Hematuria presence: without hematuria Qualified Code(s): N30.00 - Acute cystitis without hematuria - Discharge Information *PRESCRIPTION DRUG MONITORING PROGRAM REVIEWED*: No *COPY OF PRESCRIPTION DRUG MONITORING REPORT IN PATIENT AIMEE: No Instructions: Urinary Tract Infection, Adult, [id number], Stimulant Use Disorder-Methamphetamines Forms: ED Department Discharge Additional Instructions: increase fluids, small amounts more often tylenol 650mg every 4 hours as needed for fever/ discomfort stop IVDU Bactrim DS one twice daily #10 clinic follow up this week for recheck Wednesday or Wednesday, call to schedule Sepsis Event Note (ED) - Evaluation Sepsis Screening Result: No Definite Risk - Focused Exam Vital Signs: Vital Signs Temp Pulse Resp BP Pulse Ox 04/29/20 00:19 97.2 F 94 18 115/66 100 - My Orders Last 24 Hours: My Active Orders 04/29/20 00:21 CULTURE URINE [RM] Stat Blood Culture x2 Reflex Set [OM.PC] Stat 04/29/20 00:30 CULTURE BLOOD [BC] Stat 04/29/20 00:45 CULTURE BLOOD [BC] Stat - Assessment/Plan Last 24 Hours: My Active Orders 04/29/20 00:21 CULTURE URINE [RM] Stat Blood Culture x2 Reflex Set [OM.PC] Stat 04/29/20 00:30 CULTURE BLOOD [BC] Stat 04/29/20 00:45 CULTURE BLOOD [BC] Stat
== END 2020-04-29 03:03 | disposition home or self-care (01) ==
LOC: DL.ED 00:14
DX: L03.114 Cellulitis of left upper limb (principal); F15.10 Other stimulant abuse, uncomplicated; J45.909 Unspecified asthma, uncomplicated; F17.210 Nicotine dependence, cigarettes, uncomplicated
CPT/HCPCS: 36415; 80053; 80305-QW; 81001; 83605; 84703; 85025; 87040; 87086; 87088; 87186; 96365; 96375; 99284-25; J1200; J2405; J3370; J7030; J7050

== ENCOUNTER 2022-07-07 19:04 | Emergency (ER) | payer MEDICAID ==
[2022-07-07 19:10] VITALS: BP 138/77; PULSE 98
[2022-07-07 19:31] LABS: AMPHETAMINES,URINE NEGATIVE (NEGATIVE); BARBITURATES,URINE NEGATIVE (NEGATIVE); BENZODIAZEPINE,URINE NEGATIVE (NEGATIVE); MDMA (ECSTASY), URINE NEGATIVE (NEGATIVE); METHADONE,URINE NEGATIVE (NEGATIVE); METHAMPHETAMINES,URINE NEGATIVE (NEGATIVE); OPIATES,URINE NEGATIVE (NEGATIVE); OXYCODONE,URINE NEGATIVE (NEGATIVE); PHENCYCLIDINE,URINE NEGATIVE (NEGATIVE); TCA,URINE NEGATIVE (NEGATIVE)
[2022-07-07] MEDS ORDERED: Piperacillin/Tazobactam 3.375 GM in Sodium Chloride 0.9% 100 ML IV ONE (19:39)
[2022-07-07 19:40] LABS: ANION GAP 15.8 mEq/L (7-13); CHLORIDE,CL 100 mmol/L (98-107); SODIUM,NA 136 mmol/L (136-145)
[2022-07-07] MEDS ORDERED: Sodium Chloride 0.9% 1,000 ML IV ONE (19:41)
[2022-07-07 19:42] LABS: ESTIMATED GFR 121 mL/min (>=60)
[2022-07-07] MEDS ORDERED: Potassium Chloride 10 MEQ Tab.ER PO ONE (19:58)
[2022-07-07] MEDS ORDERED: Potassium Chloride 20 MEQ in Premix Bag 1 BAG IV ONE (19:58)
== END 2022-07-07 22:35 | disposition home or self-care (01) ==
LOC: DL.ED 19:04
DX: E87.6 Hypokalemia (principal); N30.01 Acute cystitis with hematuria; F17.210 Nicotine dependence, cigarettes, uncomplicated; Z90.49 Acquired absence of other specified parts of digestive tract
CPT/HCPCS: 36415; 71045; 80053; 80305; 80307; 81001; 81025; 82140; 82150; 83605; 83690; 85025; 85379; 87040; 87086; 96365; 96366; 96367; 99284; A9270; J2543; J3480; J7030

== ENCOUNTER 2022-08-01 13:47 | Emergency (ER) | payer MEDICAID | END 2022-08-01 14:09 | disposition left against medical advice (07) | LOC: DL.ED 13:47 | DX: Z53.21 Procedure and treatment not carried out due to patient leaving prior to being seen by health care provider (principal) ==

== ENCOUNTER 2022-09-21 15:35 | Emergency (ER) | payer MEDICAID ==
[2022-09-21 17:09] VITALS: BP 133/95; PULSE 98
== END 2022-09-21 17:16 | disposition home or self-care (01) ==
LOC: DL.ED 15:35
DX: L01.02 Bockhart's impetigo (principal); L73.9 Follicular disorder, unspecified
CPT/HCPCS: 99282

== ENCOUNTER 2024-05-31 14:28 | Emergency (ER) | payer MEDICAID ==
[2024-05-31 14:54] VITALS: BP 126/80; PULSE 91
[2024-05-31 15:09] LABS: APPEARANCE,URINE SLIGHTLY CLOUDY (CLEAR); BILIRUBIN,URINE NEGATIVE (NEGATIVE); COLOR,URINE YELLOW (YELLOW); GLUCOSE,URINE NEGATIVE (NEGATIVE); KETONES,URINE NEGATIVE (NEGATIVE); LEUKOCYTE ESTERASE,URINE TRACE (NEGATIVE); NITRITE,URINE NEGATIVE (NEGATIVE); OCCULT BLOOD,URINE SMALL (NEGATIVE); PROTEIN,URINE NEGATIVE (NEGATIVE); UROBILINOGEN,URINE 0.2 mg/dL (0.2-1.0)
[2024-05-31 15:20] LABS: AMORPHOUS SEDIMENT,URINE MODERATE /HPF (NOT SEEN); BACTERIA,URINE MANY /HPF (0-FEW/HPF); EPITHELIAL CELLS,URINE MANY /HPF (NOT SEEN); MUCUS,URINE MODERATE /LPF (NOT SEEN)
== END 2024-05-31 16:16 | disposition home or self-care (01) ==
LOC: DL.ED 14:28
DX: N30.01 Acute cystitis with hematuria (principal); J45.909 Unspecified asthma, uncomplicated; Z90.49 Acquired absence of other specified parts of digestive tract
CPT/HCPCS: 81001; 81025; 87086; 87804; 99283; U0002

== ENCOUNTER 2024-06-17 17:31 | Emergency (ER) | payer MEDICAID ==
[2024-06-17 17:47] VITALS: BP 133/95; PULSE 90
[2024-06-17 18:13] LABS: BASOPHILS PERCENT AUTO 0.2 % (0.0-1.0); EOSINOPHILS PERCENT AUTO 3.6 % (1.0-3.0); HEMATOCRIT 41.5 % (37.0-47.0); HEMOGLOBIN 13.2 g/dL (12.0-16.0); LYMPHOCYTES PERCENT AUTO 29.2 % (20.5-50.1); MEAN CORPUSCULAR HEMOGLOBIN 28.4 pg (27.0-34.0); MEAN CORPUSCULAR HGB CONC 31.8 g/dL (33.0-35.0); MEAN CORPUSCULAR VOLUME 89.4 fL (80-100); MONOCYTES PERCENT AUTO 9.3 % (2-8); NEUTROPHILS PERCENT AUTO 57.7 % (42.2-75.2); PLATELET COUNT,PLT 323 10^3/uL (150-450); RED BLOOD CELL COUNT 4.64 10^6/uL (4.2-5.4); WHITE BLOOD CELL COUNT,WBC 12.4 10^3/uL (5.0-10.0)
[2024-06-17 18:15] LABS: APPEARANCE,URINE CLOUDY (CLEAR); BILIRUBIN,URINE NEGATIVE (NEGATIVE); COLOR,URINE BROWN (YELLOW); GLUCOSE,URINE NEGATIVE (NEGATIVE); KETONES,URINE NEGATIVE (NEGATIVE); LEUKOCYTE ESTERASE,URINE NEGATIVE (NEGATIVE); NITRITE,URINE NEGATIVE (NEGATIVE); OCCULT BLOOD,URINE LARGE (NEGATIVE); PROTEIN,URINE 30 (NEGATIVE); UROBILINOGEN,URINE 0.2 mg/dL (0.2-1.0)
[2024-06-17] MEDS: Sodium Chloride 0.9% 1,000 ML IV ONE (18:27)
[2024-06-17] MEDS: Morphine 2 MG/ML SYRINGE IVPUSH ONE (18:27)
[2024-06-17] MEDS: Ondansetron 4 MG/2 ML SDV IVPUSH ONE (18:28)
[2024-06-17] MEDS: Iopamidol 612 MG/ML 100 ML Bottle IVPUSH ONE (18:36)
[2024-06-17 19:14] LABS: RBC,URINE PACKED /HPF (0-5); WBC,URINE NOT SEEN /HPF (0-5/HPF)
[2024-06-17 19:15] LABS: BACTERIA,URINE FEW /HPF (0-FEW/HPF); EPITHELIAL CELLS,URINE FEW /HPF (NOT SEEN)
[2024-06-17] MEDS: Oxybutynin 5 MG Tab.ER ONE (21:38)
[2024-06-17] MEDS: Take Home: Tamsulosin HCl 0.4 MG, 6 Cap Pack PO ONE (21:39)
[2024-06-17] MEDS: Take Home: Ciprofloxacin HCl 500 MG, 6 Tab Pack PO ONE (21:39)
[2024-06-17] MEDS: Take Home: Acetaminophen/HYDROcodone 325-5 MG, 5 Tab Pack PO ONE (21:40)
== END 2024-06-17 21:54 | disposition home or self-care (01) ==
LOC: DL.ED 17:31
DX: N13.2 Hydronephrosis with renal and ureteral calculous obstruction (principal); N30.01 Acute cystitis with hematuria; R80.9 Proteinuria, unspecified; E86.9 Volume depletion, unspecified; F17.200 Nicotine dependence, unspecified, uncomplicated; Z90.49 Acquired absence of other specified parts of digestive tract
CPT/HCPCS: 36415; 74178; 81001; 85025; 96361; 96374; 99284; A9270; J2270; J2405; J7030; Q9967

== ENCOUNTER 2025-01-29 09:02 | Emergency (ER) | payer MEDICAID ==
[2025-01-29 09:22] VITALS: BP 126/80; PULSE 86
== END 2025-01-29 09:30 | disposition home or self-care (01) ==
LOC: DL.ED 09:02
DX: K04.7 Periapical abscess without sinus (principal); Z88.1 Allergy status to other antibiotic agents; Z79.899 Other long term (current) drug therapy
CPT/HCPCS: 99283

== ENCOUNTER 2025-08-01 13:02 | Emergency (ER) | payer MEDICAID ==
[2025-08-01 13:29] LABS: APPEARANCE,URINE CLOUDY (CLEAR); GLUCOSE,URINE NEGATIVE (NEGATIVE); OCCULT BLOOD,URINE LARGE (NEGATIVE)
[2025-08-01] MEDS: Ondansetron 4 MG/2 ML SDV IVPUSH ONE (13:34)
[2025-08-01 13:36] LABS: BASOPHILS PERCENT AUTO 0.2 % (0.0-1.0); EOSINOPHILS PERCENT AUTO 0.3 % (1.0-3.0); LYMPHOCYTES PERCENT AUTO 14.1 % (20.5-50.1); MONOCYTES PERCENT AUTO 7.1 % (2-8); NEUTROPHILS PERCENT AUTO 78.3 % (42.2-75.2); PLATELET COUNT,PLT 369 10^3/uL (150-450); RED BLOOD CELL COUNT 5.50 10^6/uL (4.2-5.4); WHITE BLOOD CELL COUNT,WBC 23.6 10^3/uL (5.0-10.0)
[2025-08-01 13:38] LABS: SQUAMOUS EPITHELIAL CELLS,UR FEW /HPF (NOT SEEN)
[2025-08-01] MEDS: Iopamidol 612 MG/ML 100 ML Bottle IVPUSH ONE (13:49)
[2025-08-01 13:56] LABS: A/G RATIO 0.8; ALANINE AMINOTRANSFERASE,ALT 34.0 U/L (14-59); ASPARTATE AMNIOTRANSFERASE,AST 15.0 U/L (15-37); BILIRUBIN TOTAL 0.3 mg/dL (0.2-1.0); BLOOD UREA NITROGEN,BUN 12.0 mg/dL (7-18); CARBON DIOXIDE,CO2 23.0 mmol/L (21-32); CHLORIDE,CL 104.0 mmol/L (98-107); CREATININE 0.57 mg/dL (0.55-1.02); EST CRCL DRUG DOSING (CG) 126.89 mL/min; GLUCOSE RANDOM 102.0 mg/dL (70-99); POTASSIUM,K 3.9 mmol/L (3.5-5.1); PROTEIN TOTAL,TP 9.1 g/dL (6.4-8.2); SODIUM,NA 140.0 mmol/L (136-145)
[2025-08-01 13:59] LABS: ESTIMATED GFR 127.0 mL/min (>=60)
[2025-08-01 16:32] VITALS: BP 121/87; PULSE 91
== END 2025-08-01 15:31 | disposition home or self-care (01) ==
LOC: DL.ED 13:02
DX: K52.9 Noninfective gastroenteritis and colitis, unspecified (principal); F17.200 Nicotine dependence, unspecified, uncomplicated; J45.909 Unspecified asthma, uncomplicated; Z90.49 Acquired absence of other specified parts of digestive tract
CPT/HCPCS: 36415; 74177; 80053; 81001; 81025; 83605; 85025; 86140; 87040; 96361; 96374; 99284; A9270; J2405; J7030; Q9967